=== PATIENT | male | born 1950 | race Caucasian/White ===

== ENCOUNTER 2020-02-18 19:43 | Inpatient (IN) ==
[2020-02-18] MEDS ORDERED: ONDANSETRON 4 MG/2 ML VIAL IV ONE (20:05)
[2020-02-18] MEDS: HYDROmorphone 0.5 MG/0.5 ML SYRINGE IV PRN ×3 (20:18→22:20)
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
[2020-02-18 21:21] LABS: Basophils # (Auto) 0.06 K/mcL (0.00-0.20); Basophils % (Auto) 0.4 % (0.0-2.0); Eosinophils # (Auto) 0.09 K/mcL (0.00-0.70); Eosinophils % (Auto) 0.6 % (0.0-7.0); Hematocrit 45.6 % (41.0-55.0); Hemoglobin 15.4 g/dL (13.5-16.5); Lymphocytes % (Auto) 10.5 % (15.0-49.0); Mean Cell Volume 95.4 fL (80.0-100.0); Mean Corpuscular HGB Conc 33.8 g/dL (31.0-36.0); Mean Platelet Volume 9.6 fL (7.4-10.4); Monocytes # (Auto) 1.21 K/mcL (0.10-0.90); Monocytes % (Auto) 8.4 % (1.0-12.0); Neutrophils % (Auto) 80.1 % (38.0-78.0); Platelet Count 465 K/mcL (140-440); RBC 4.78 M/mcL (4.50-5.90); Red Cell Distribution Width 12.7 % (11.5-14.5); WBC 14.4 K/mcL (4.5-11.0)
[2020-02-18 21:29] LABS: Appearance,Urine CLEAR (Clear); Bilirubin,Urine Negative (Negative); Color,Urine STRAW; Culture Indicated,Urine No; Glucose,Urine (UA) Negative (Negative); Ketones,Urine Negative (Negative); Leukocyte Esterase,Urine Negative /ug (Negative); Nitrate,Urine Negative (Negative); Protein,Urine Negative (Negative); Specific Gravity,Urine 1.003 (1.000-1.035); Urine RBC 1 /hpf (0-1); Urine Squamous Epithelial Cell 0 /hpf (0-4); Urine WBC 0 /hpf (0-4); Urobilinogen,Urine Negative
[2020-02-18 21:41] LABS: ALT/SGPT 17 U/L (<40); AST/SGOT 25 U/L (<40); Albumin/Globulin Ratio 1.6 (1.0-2.3); Alkaline Phosphatase 79 U/L (39-117); Bilirubin,Total 0.3 mg/dL (0.1-1.0); Blood Urea Nitrogen 7 mg/dL (8-23); Calcium 9.2 mg/dL (8.6-10.4); Carbon Dioxide 24 mmol/L (22-30); Chloride 98 mmol/L (96-108); Globulin 2.5 gm/dL (2.2-3.7); Glomerular Filtration Rate 92; Glucose 164 mg/dL (70-105)
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
[2020-02-18] MEDS ORDERED: POTASSIUM CHLORIDE 20 MEQ TABLET PO PRN ×2 (22:53)
[2020-02-18] MEDS ORDERED: DEXTROSE 50% 50 ML VIAL IV PRN (22:53)
[2020-02-18] MEDS ORDERED: POTASSIUM CHLORIDE 40 MEQ in DEXTROSE 5% IN WATER 500 ML IV PRN (22:53)
[2020-02-18] MEDS ORDERED: POLYETHYLENE GLYCOL 3350 17 GM PACKET PO PRN (22:53)
[2020-02-18] MEDS ORDERED: MAGNESIUM SULFATE 2 GM/50 ML BAG IV PRN (22:53)
[2020-02-18] MEDS ORDERED: HYDROcodone/APAP 5/325MG TABLET PO PRN (22:53)
[2020-02-18] MEDS ORDERED: ONDANSETRON 4 MG/2 ML VIAL IV PRN (22:53)
[2020-02-18] MEDS ORDERED: SENNOSIDES 1 TABLET PO PRN (22:53)
[2020-02-18] MEDS ORDERED: ACETAMINOPHEN 325 MG TABLET PO PRN (22:53)
[2020-02-18] MEDS ORDERED: LORazepam 2 MG/ML VIAL IV PRN (22:53)
[2020-02-18] MEDS ORDERED: LABETALOL 5 MG/ML ML IV PRN (22:53)
[2020-02-18] MEDS ORDERED: DEXTROSE 31 GM ORAL.SUSP PO PRN (22:53)
[2020-02-18] MEDS ORDERED: IPRATROPIUM/ALBUTEROL 3 ML AMPUL.NEB NEB PRN (22:53)
[2020-02-19] MEDS ORDERED: morphine 4 MG/ML VIAL ONE ×3 (00:13→06:20)
[2020-02-19] MEDS: 0.9 % SODIUM CHLORIDE 1,000 ML IV SCH ×2 (00:13→08:34)
[2020-02-19] MEDS ORDERED: LORazepam 2 MG/ML VIAL ONE (02:40)
[2020-02-19] MEDS: morphine 4 MG/ML VIAL IV PRN ×4 (03:16→16:10)
[2020-02-19] MEDS: 0.9 % SODIUM CHLORIDE 10 ML SYRINGE IV SCH ×3 (04:25→21:06)
[2020-02-19] MEDS: INSULIN LISPRO 1 UNIT/0.01 ML UNIT SQ SCH ×4 (07:15→21:18)
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
--- NOTE | 2020-02-19 07:55 | Internal Med Progress Note ---
SUBJECTIVE Subjective Patient information: Note initiated : 02/19/20 at 7:52 am Service Date, if different from initiated Date: [] Patient: Alvin Lo 69 y/o M admitted on 02/18/20 for Fall. Chief Complaint: [] Interval history: 69-year-old male who is dog out behind him and tripped and but the least. [place] left hip with immediate pain. Loss of consciousness or head injury. Work-up in the ER showed a left hip fracture. Dr. Graves was contacted orthopedics. Hospital consult was requested for comorbidities. Does have chronic sinus tach ycardia. Other vitals unremarkable. 02/18 Pain relatively controlled. No new complaints. Scheduled for surgery this morning. Has 2 glasses of wine a night and has had no history of withdrawal. Review of Systems: denies headache/fever/chills/nausea/vomiting/chest or abdominal pain/cough/dyspnea/diarrhea. Otherwise see above. Constitutional Vitals: Vital Signs Temp Pulse Resp BP Pulse Ox 98.7 F 101 H 18 154/85 96 02/19/20 07:00 02/19/20 07:00 02/19/20 07:00 02/19/20 07:00 02/19/20 03:17 Period Temp Pulse Resp BP Sys/Wick Pulse Ox Last 24 Hr 98.2 F-100.8 F 100-109 12-24 130-168/85-139 94-97 Intake and Output 02/18/20 02/19/20 02/19/20 21:59 05:59 13:59 Intake Total 0 Balance 0 Weight 86.183 kg 84.504 kg Intake & Output: Intake & Output 02/18/20 02/19/20 02/19/20 21:59 05:59 13:59 Intake Total 0 Balance 0 Weight 86.183 kg 84.504 kg Intake: Oral 0 Exam: General: Alert, Awake, No acute Distress Eyes/N/T: EOMI, Head/Neck: neck supple, CV: RRR, No murmurs, normal s1/s2 Pulm: Clear b/l, no wheezing/rhonchi/rales Abd: soft, nontender, +BS x4 Ext: no clubbing/cyanosis/edema. Left leg shortened and rotated Neuro: Alert, no focal deficits, moves all extremities, Skin: warm/dry OBJ DATA Labs CBC & Chem 7: 02/18/20 20:49 02/18/20 20:49 Labs: Abnormal Lab Results 02/18/20 02/18/20 20:49 20:49 WBC 14.4 H Plt Count 465 H Neut % (Auto) 80.1 H Lymph % (Auto) 10.5 L [place] # (Auto) 1.21 H Absolute Neutrophils 11.49 H BUN 7 L Glucose 164 H Meds: Medications Acetaminophen (Tylenol) 650 mg PO Q6HP PRN PRN Reason: PAIN/FEVER > 101 Hydrocodone Bitart/Acetaminophen ([place] 5/325mg) 1 tab PO Q4HP PRN PRN Reason: PAIN LEVEL 3-6 Albuterol/Ipratropium (Duoneb) 3 ml NEB Q4HP PRN PRN Reason: Shortness Of Breath Dextrose (Dextrose 50%) 0 ml IV UD PRN PRN Reason: Hypoglycemia Diagnostic Test (Pha) (Accu-Chek) 1 each FS [facility] Last Admin: 02/19/20 07:13 Dose: 1 each Documented by: Docusate Sodium (Colace) 100 mg PO BID [facility] Last Admin: 02/19/20 07:12 Dose: Not Given Documented by: Glucose (Insta-Glucose) 15 gm PO PRN PRN PRN Reason: Hypoglycemia Potassium Chloride 40 meq/ (Dextrose) 520 mls @ 130 mls/hr IV UD PRN PRN Reason: Potassium < 3 Magnesium Sulfate (Magnesium Sulfate) 2 gm in 50 mls @ 50 mls/hr IV UD PRN PRN Reason: Magnesium </= 1.6 Sodium Chloride (Sodium Chloride 0.9%) 1,000 mls @ 100 mls/hr IV .Q10H [facility] Stop: 02/20/20 04:52 Last Admin: 02/19/20 00:13 Dose: 100 mls/hr Documented by: Insulin Human Lispro (Humalog) 0 unit SQ ACHS [facility]; Protocol Last Admin: 02/19/20 07:15 Dose: Not Given Documented by: Labetalol HCl (Trandate) 0 mg IV Q2HP PRN PRN Reason: Hypertension Lorazepam (Ativan) 0.5 mg IV Q4-6HP PRN PRN Reason: ANXIETY/SEDATION Last Admin: 02/19/20 02:35 Dose: 0.5 mg Documented by: Morphine Sulfate (Morphine) 0 mg IV Q3HP PRN PRN Reason: Pain Last Admin: 02/19/20 06:17 Dose: 4 mg Documented by: Ondansetron HCl (Zofran) 4 mg IV Q4HP PRN PRN Reason: Nausea And Vomiting Polyethylene Glycol (Miralax) 17 gm PO DAILYP PRN PRN Reason: Constipation Potassium Chloride (Kdur) 40 meq PO UD PRN PRN Reason: Potssium is 3-3.5 Potassium Chloride (Kdur) 40 meq PO UD PRN PRN Reason: Potassium < 3 Senna (Senokot) 2 tab PO DAILYP PRN PRN Reason: Constipation Sodium Chloride (Saline Flush) 10 ml IV Q8 [facility] Last Admin: 02/19/20 04:25 Dose: Not Given Documented by: A/P Narrative A/P Narrative: A: *Left hip fracture: *DM: *HTN/HLD: *Anxiety: *chronic sinus tachycardia: P: -Hip per orthopedics, pain control, pt/ot -Continue home lisinopril -Continue home diabetic medications with SSI -ppx: per ortho DNR Time Spent With Patient Time: Total time spent is greater than 50% in coordination of care (as documented) at patient's floor/unit and/or counseling patient: QUALITY Stroke Symptom Onset Unknown: No VTE Deep Vein Thrombosis/Pulmonary Embolism Present on Admission: No
[2020-02-19] MEDS ORDERED: metFORMIN 500 MG TABLET PO SCH (08:00)
--- NOTE | 2020-02-19 08:32 | XRay Report ---
HISTORY: Fell with left hip injury FINDINGS: There is an acute transverse fracture of the left femoral neck. There is varus angulation and superior retraction of the shaft of the femur. The hip joint space is normal in width and alignment is no underlying arthritis. Degenerative disc disease is present at L4-5 and L5-S1. IMPRESSION: Fractured left femoral neck Interpreted and Authenticated by: Rachdi Chavis 02/19/20
--- NOTE | 2020-02-19 08:33 | XRay Report ---
HISTORY: Side chest pain, hip fracture FINDINGS: Lungs are clear. The heart size and pulmonary vasculature are normal. Aorta is mildly tortuous. The mediastinum and vito are otherwise normal. There is arthritis and disc degeneration at several levels in the cervical spine. Calcified plaques are present in the carotid bifurcations bilaterally. IMPRESSION: No acute abnormality Interpreted and Authenticated by: Rachid Chavis 02/19/20
[2020-02-19] MEDS ORDERED: NITROGLYCERIN 0.4 MG TAB.SUBL SL PRN ×2 (08:42→15:02)
[2020-02-19] MEDS ORDERED: ASPIRIN 81 MG TAB.CHEW PO SCH (09:00)
[2020-02-19] MEDS ORDERED: LISINOPRIL 10 MG TABLET PO SCH (09:00)
[2020-02-19] MEDS ORDERED: DOCUSATE SODIUM 100 MG CAPSULE PO SCH (09:00)
[2020-02-19] MEDS ORDERED: ceFAZolin 2 GM in DEXTROSE 5% IN WATER 50 ML IV SCH ×2 (09:15→12:45)
[2020-02-19 09:59] LABS: Basophils # (Auto) 0.07 K/mcL (0.00-0.20); Basophils % (Auto) 0.5 % (0.0-2.0); Eosinophils # (Auto) 0.25 K/mcL (0.00-0.70); Eosinophils % (Auto) 1.9 % (0.0-7.0); Hematocrit 44.4 % (41.0-55.0); Hemoglobin 14.8 g/dL (13.5-16.5); Lymphocytes # (Auto) 1.72 K/mcL (1.50-4.80); Lymphocytes % (Auto) 13.2 % (15.0-49.0); Mean Cell Volume 96.9 fL (80.0-100.0); Mean Corpuscular HGB Conc 33.3 g/dL (31.0-36.0); Mean Platelet Volume 9.8 fL (7.4-10.4); Monocytes # (Auto) 1.47 K/mcL (0.10-0.90); Monocytes % (Auto) 11.3 % (1.0-12.0); Neutrophils % (Auto) 73.1 % (38.0-78.0); Platelet Count 441 K/mcL (140-440); RBC 4.58 M/mcL (4.50-5.90); Red Cell Distribution Width 13.1 % (11.5-14.5)
--- NOTE | 2020-02-19 10:15 | XRay Report ---
HISTORY: Left hip fracture FINDINGS: Single AP view was obtained with traction applied to the leg. There is an acute transverse fracture through left femoral neck. The fracture line is better defined on this study than on the preceding x-ray. The upward retraction of the femur has diminished with retraction. There is still a varus angulation. Soft tissue swelling is present lateral to the greater trochanter. This may be a hematoma. IMPRESSION: Fractured left femoral neck Interpreted and Authenticated by: Rachid Chavis 02/19/20
[2020-02-19 10:20] LABS: ALT/SGPT 15 U/L (<40); AST/SGOT 24 U/L (<40); Albumin 3.6 gm/dL (3.2-5.2); Albumin/Globulin Ratio 1.4 (1.0-2.3); Alkaline Phosphatase 84 U/L (39-117); Bilirubin,Direct < 0.2 mg/dL (<0.3); Bilirubin,Total 0.8 mg/dL (0.1-1.0); Blood Urea Nitrogen 9 mg/dL (8-23); Calcium 8.9 mg/dL (8.6-10.4); Carbon Dioxide 28 mmol/L (22-30); Chloride 101 mmol/L (96-108); Globulin 2.5 gm/dL (2.2-3.7); Glomerular Filtration Rate 92; Glucose 125 mg/dL (70-105); Lactate Dehydrogenase 228 U/L (135-225); Phosphorous 3.5 mg/dL (2.5-4.5); Triglycerides 174 mg/dL (<150); Uric Acid 6.2 mg/dL (2.5-8.0)
[2020-02-19 10:36] LABS: Prothrombin Time 13.2 sec (11.9-14.5)
[2020-02-19] MEDS ORDERED: TRANEXAMIC ACID 1,000 MG/10 ML VIAL IV ONE ×2 (10:55→11:05)
[2020-02-19] MEDS ORDERED: ONDANSETRON 4 MG/2 ML VIAL ONE (11:05)
[2020-02-19] MEDS ORDERED: KETAMINE 100 MG/ML ML ONE (11:05)
[2020-02-19] MEDS ORDERED: PROPOFOL 200 MG/20 ML VIAL IV ONE (11:05)
[2020-02-19] MEDS ORDERED: DEXAMETHASONE 10 MG/ML VIAL ONE (11:05)
[2020-02-19] MEDS ORDERED: LIDOCAINE HCL/PF 100 MG/5 ML SYRINGE IV ONE (11:05)
[2020-02-19] MEDS ORDERED: FLUMAZENIL 0.1 MG/ML ML IV PRN (11:56)
[2020-02-19] MEDS ORDERED: diphenhydrAMINE 50 MG/ML VIAL IV PRN (11:56)
[2020-02-19] MEDS ORDERED: ONDANSETRON 4 MG/2 ML VIAL IV PRN ×2 (11:56→15:02)
[2020-02-19] MEDS ORDERED: LACTATED RINGERS 250 ML IV PRN (11:56)
[2020-02-19] MEDS ORDERED: NALOXONE HCL 0.4 MG/ML VIAL IV PRN (11:56)
[2020-02-19] MEDS ORDERED: ACETAMINOPHEN 1,000 MG/100 ML BOTTLE IV ONE (11:56)
[2020-02-19] MEDS ORDERED: PROMETHAZINE 25 MG/ML VIAL IV PRN (11:56)
[2020-02-19] MEDS ORDERED: IPRATROPIUM/ALBUTEROL 3 ML AMPUL.NEB NEB PRN ×2 (11:56→15:02)
[2020-02-19] MEDS ORDERED: LACTATED RINGERS 1,000 ML IV SCH ×2 (12:00→12:45)
[2020-02-19] MEDS ORDERED: HYDROcodone/APAP 5/325MG TABLET PO PRN (12:35)
[2020-02-19] MEDS ORDERED: BENZOCAINE/MENTHOL 1 LOZENGE PO PRN ×2 (12:35→15:02)
--- NOTE | 2020-02-19 12:35 | Brief Operative Note ---
Brief Operative Note Date of procedure: 02/19/20 Pre-op diagnosis: left displaced femeral neck fracture Post-op diagnosis: same Procedure: left ranjeet hip arthroplasty Grafts/Implants: Yes Anesthesia: GETA Findings: displaced fracture Complications: none Surgeon: Corey Graves Software Test Developer: Azael Davidson Estimated blood loss (cc): 150 Tourniquet Time (Minutes): 0 Specimens Removed/Pathology: none sent Condition: stable Disposition: PACU
[2020-02-19] MEDS ORDERED: METHOCARBAMOL 1,000 MG/10 ML VIAL IV PRN (12:40)
[2020-02-19] MEDS: fentaNYL 100 MCG/2 ML VIAL IV PRN ×7 (13:07→14:11)
[2020-02-19] MEDS ORDERED: MEPERIDINE 25 MG/ML SYRINGE IV ONE (13:08)
--- NOTE | 2020-02-19 13:15 | Operative Note ---
DATE OF OPERATION: 02/19/2020 POSTOPERATIVE DIAGNOSIS: Left displaced femoral neck fracture. POSTOPERATIVE DIAGNOSIS: Left displaced femoral neck fracture. PROCEDURE PERFORMED: Left hip hemiarthroplasty, noncemented. SURGEON: Corey Graves M.D. CLINIC MANAGER: Azael Davidson PA-C. The PA's assistance was required for the safe and efficient completion of the entire case. This providers expertise and technical skill were required throughout the case. The PA assisted with preoperative coordination, intraoperative retraction, wound closure, dressing and splint application, as well as postoperative documentation and care coordination. ANESTHESIA: General. INTRAVENOUS FLUIDS: 1100 mL of lactated Ringer's. ESTIMATED BLOOD LOSS: 150 mL. TOURNIQUET TIME: Not applicable. ANTIBIOTICS: 2 grams Ancef. IMPLANTS: Actis size 6 noncemented stem with a regular offset size 51 head ball with a zero insert. PATHOLOGY/LAB: None. INTRAOPERATIVE COMPLICATIONS: None apparent. INDICATION FOR PROCEDURE: The patient is a 69-year-old male who fell yesterday after he fell over his dog resulting in fracture of his hip. He was subsequently brought to the emergency department for further evaluation and treatment and found to have a displaced fracture of the femoral neck. Orthopedics was consulted for further evaluation and treatment. I discussed this with him, as well as the treatment options to include surgical intervention with a hemiarthroplasty. I discussed the procedure with him, as well as the risks and benefits of the surgery and postoperative expectations and the recovery process. Given his options, he does want to proceed with surgery. DESCRIPTION OF PROCEDURE: The patient was met in the preop holding area and site was verified and marked with the patient's input. He was then taken back to the operating room where he underwent successful anesthesia via LMA. He was placed in lateral decubitus position with the left side up. He had a cutout for his arm negating the need for an axillary roll. The left lower extremity was wiped down with chlorhexidine wipes and then prepped and draped in the usual sterile fashion with chlorhexidine. Surgical timeout was performed to verify patient identity, correct procedure being performed, and correct extremity being operated on. Everybody was in agreement. I created an approximately 12 cm incision over the posterior middle third of the greater trochanter distally and proximally. Skin was sharply incised with a large coagulated hematoma that was evacuated down to the tensor fascia and IT band more distally. This was incised as well and a bursectomy was performed. A self-retaining Charnley retractor was placed to expose the lateral aspect of the proximal femur. With internal rotation, the posterior aspect of the femoral neck was identified and elevated the external rotators off and tagged these. The fracture was easily encountered. I created a capsulotomy in line with the femoral neck, placing tag sutures in each of the limbs of the capsulotomy as well. The fracture went down approximately 13 mm from the lesser trochanter. Thus, I elected to cut the neck cut from this laterally into the crux of the greater trochanter. This was completed with an oscillating saw with placing a Christiano in the anterior aspect of the neck. Then, a corkscrew device was utilized to remove the head. Ligamentum flavum was excised as well. The labrum was still intact and minimal arthritis of the acetabulum itself. At this point, we copiously irrigated the wound again, ensuring all bony fragments were removed. Pulse lavage was then used with IrriSept as well. The femoral neck was exposed using the femoral neck elevator. Utilizing a box puller lateralizing canal finder and subsequently broached up to size 7 with Actis stem with a good fit. We placed a standard head with a 51 mm head ball and reduced this with good overall catholic of his length. It was stable in the side lying position at 30/30 along with hip flexion 90 degrees and internal rotation of approximately 50-60 degrees without dislocation. I felt this was a stable construct and still able to get full extension. These trials were removed. Again, IrriSept was allowed to soak the wound again and pulse lavaged this out, ensuring all bony fragments were removed. We placed our final implants with the same construct and reduced the joint again with the same results as noted above. At this point, we closed the capsulotomy with a #2 FiberWire for a total of four sutures with a good repair. The IT band and tensor was closed with a #1 Vicryl and Stratafix more distally and over the proximal muscle portion with a 2-0 Vicryl. Subcutaneous tissue was closed with 3-0 Vicryl and skin was closed with keely. The skin was then cleaned and dried and placed a silver dressing. The patient was awoken from anesthesia and transferred to PACU in stable condition. POSTOPERATIVE PLAN: The patient will be admitted back to the floor for postoperative recovery with posterior hip precautions for a total of 6 weeks. DLW:cele Job ID: [id number] Doc ID: [id number] Corey Graves MD [facility]
[2020-02-19] MEDS ORDERED: HYDROmorphone 0.5 MG/0.5 ML SYRINGE IV PRN (13:16)
[2020-02-19] MEDS ORDERED: MEPERIDINE 50 MG/ML INJECTION IM PRN (13:16)
[2020-02-19] MEDS ORDERED: MEPERIDINE 25 MG/ML SYRINGE IV PRN (13:16)
[2020-02-19] MEDS ORDERED: HYDROmorphone 0.5 MG/0.5 ML SYRINGE ONE (13:24)
--- NOTE | 2020-02-19 14:32 | XRay Report ---
HISTORY: Fractured left hip and postop hemiarthroplasty FINDINGS: The left femoral head and neck have been resected and replaced with a metal implant. The implant is well centered within the acetabulum. There is no fracture or abnormal soft tissue calcification. IMPRESSION: Well-positioned left hip prosthesis Interpreted and Authenticated by: Rachid Chavis 02/19/20
[2020-02-19] MEDS ORDERED: 0.9 % SODIUM CHLORIDE 1,000 ML IV SCH (15:02)
[2020-02-19] MEDS ORDERED: LABETALOL 5 MG/ML ML IV PRN (15:02)
[2020-02-19] MEDS ORDERED: POTASSIUM CHLORIDE 40 MEQ in DEXTROSE 5% IN WATER 500 ML IV PRN (15:02)
[2020-02-19] MEDS ORDERED: DEXTROSE 31 GM ORAL.SUSP PO PRN (15:02)
[2020-02-19] MEDS ORDERED: POTASSIUM CHLORIDE 20 MEQ TABLET PO PRN ×2 (15:02)
[2020-02-19] MEDS ORDERED: SENNOSIDES 1 TABLET PO PRN (15:02)
[2020-02-19] MEDS ORDERED: POLYETHYLENE GLYCOL 3350 17 GM PACKET PO PRN (15:02)
[2020-02-19] MEDS ORDERED: DEXTROSE 50% 50 ML VIAL IV PRN (15:02)
[2020-02-19] MEDS ORDERED: LORazepam 2 MG/ML VIAL IV PRN (15:02)
[2020-02-19] MEDS ORDERED: MAGNESIUM SULFATE 2 GM/50 ML BAG IV PRN (15:02)
[2020-02-19] MEDS: ceFAZolin 1 GM VIAL IV SCH ×2 (16:11→19:19)
[2020-02-19] MEDS: LACTATED RINGERS 1,000 ML IV SCH (16:12)
[2020-02-19] MEDS: metFORMIN 500 MG TABLET PO SCH (16:58)
[2020-02-19] MEDS: METHOCARBAMOL 1,000 MG/10 ML VIAL IV PRN (19:19)
[2020-02-19] MEDS ORDERED: AMITRIPTYLINE 25 MG TABLET PO SCH (21:00)
[2020-02-19] MEDS: DOCUSATE SODIUM 100 MG CAPSULE PO SCH (21:05)
[2020-02-19] MEDS: AMITRIPTYLINE 25 MG TABLET PO SCH (21:06)
[2020-02-19] MEDS: HYDROcodone/APAP 5/325MG TABLET PO PRN (21:18)
[2020-02-20] MEDS: HYDROcodone/APAP 5/325MG TABLET PO PRN ×5 (04:01→20:48)
[2020-02-20] MEDS: LACTATED RINGERS 1,000 ML IV SCH ×2 (04:02→19:50)
[2020-02-20] MEDS: 0.9 % SODIUM CHLORIDE 10 ML SYRINGE IV SCH ×3 (04:02→21:14)
--- NOTE | 2020-02-20 06:59 | Orthopedic Progress Note ---
SUBJECTIVE Subjective Patient information: Note initiated : 02/20/20 at 6:53 am Service Date, if different from initiated Date: [] Patient: Alvin Lo 69 y/o M admitted on 02/18/20 for Fall. Chief Complaint: [no new complaints overnight. Pain is controlled. Ambulated 100ft in the hallway last night. Denies chest pain/shortness of breath.] Constitutional Vitals: Vital Signs Temp Pulse Resp BP Pulse Ox 98.2 F 100 H 20 140/84 96 02/20/20 03:36 02/20/20 03:36 02/20/20 03:36 02/20/20 03:36 02/20/20 03:36 Period Temp Pulse Resp BP Sys/Wick Pulse Ox Last 24 Hr 97.0 F-98.7 F 79-108 12-27 130-163/84-118 84-100 Intake and Output 02/19/20 02/20/20 02/20/20 21:59 05:59 13:59 Intake Total 740 150 Output Total 525 100 250 Balance 215 50 -250 Weight 186 lb 12.8 oz Intake & Output: Intake & Output 02/19/20 02/20/20 02/20/20 21:59 05:59 13:59 Intake Total 740 150 Output Total 525 100 250 Balance 215 50 -250 Weight 186 lb 12.8 oz Intake: Oral 740 150 Output: Void Amount 525 100 250 Other: Meal Dinner Percent of Meal Consumed 100% Feeding Ability Assist with Tray Set Up Urine Appearance Clear Clear Urine Color Bright Yellow Bright Yellow Urine Odor Normal Additional findings Additional findings: General: awake, oriented, non acute distress Left hip: dressing in place- clean and dry without strikethrough. Abduction pillow in place. Foot perfused, baseline neuropathy to mid/upper calf level. OBJ DATA Labs CBC & Chem 7: 02/19/20 06:19 02/19/20 06:19 Labs: Abnormal Lab Results 02/19/20 02/19/20 02/18/20 06:19 06:19 20:49 WBC 13.0 H Plt Count 441 H Neut % (Auto) Lymph % (Auto) 13.2 L [place] # (Auto) 1.47 H Absolute Neutrophils 9.52 H BUN 7 L Glucose 125 H 164 H GGT 70 H Lactate Dehydrogenase 228 H Triglycerides 174 H 02/18/20 20:49 WBC 14.4 H Plt Count 465 H Neut % (Auto) 80.1 H Lymph % (Auto) 10.5 L [place] # (Auto) 1.21 H Absolute Neutrophils 11.49 H BUN Glucose GGT Lactate Dehydrogenase Triglycerides Meds: Medications Hydrocodone Bitart/Acetaminophen ([place] 5/325mg) 0 tab PO Q4HP PRN; Protocol PRN Reason: Per Pain Protocol Last Admin: 02/20/20 04:01 Dose: 1 tab Documented by: Albuterol/Ipratropium (Duoneb) 3 ml NEB Q4HP PRN PRN Reason: Shortness Of Breath Amitriptyline HCl (Elavil) 25 mg PO HS [facility] Last Admin: 02/19/20 21:06 Dose: 25 mg Documented by: Apixaban (Eliquis) 2.5 mg PO BID [facility] Dextrose (Dextrose 50%) 0 ml IV UD PRN PRN Reason: Hypoglycemia Diagnostic Test (Pha) (Accu-Chek) 1 each FS [facility] Last Admin: 02/19/20 21:07 Dose: 1 each Documented by: Docusate Sodium (Colace) 100 mg PO BID [facility] Last Admin: 02/19/20 21:05 Dose: 100 mg Documented by: Glucose (Insta-Glucose) 15 gm PO PRN PRN PRN Reason: Hypoglycemia Hydromorphone HCl (Dilaudid) 0.5 mg IV Q15MIN PRN; Protocol PRN Reason: Per Pain Protocol Lactated Ringer's (Lactated Ringers) 1,000 mls @ 75 mls/hr IV .[id number] [facility] Last Admin: 02/20/20 04:02 Dose: Not Given Documented by: Magnesium Sulfate (Magnesium Sulfate) 2 gm in 50 mls @ 50 mls/hr IV UD PRN PRN Reason: Magnesium </= 1.6 Potassium Chloride 40 meq/ (Dextrose) 520 mls @ 130 mls/hr IV UD PRN PRN Reason: Potassium < 3 Insulin Human Lispro (Humalog) 0 unit SQ [facility]; Protocol Last Admin: 02/19/20 21:18 Dose: 6 units Documented by: Labetalol HCl (Trandate) 0 mg IV Q2HP PRN PRN Reason: Hypertension Lisinopril (Zestril) 10 mg PO QDAY [facility] Lorazepam (Ativan) 0.5 mg IV Q4-6HP PRN PRN Reason: ANXIETY/SEDATION Metformin HCl (Glucophage) 1,000 mg PO BIDCC [facility] Last Admin: 02/19/20 16:58 Dose: 1,000 mg Documented by: Methocarbamol (Robaxin) 750 mg IV Q6HP PRN PRN Reason: Muscle Spasm Last Admin: 02/19/20 19:19 Dose: 750 mg Documented by: Morphine Sulfate (Morphine) 0 mg IV Q3HP PRN PRN Reason: Pain Last Admin: 02/19/20 16:10 Dose: 6 mg Documented by: Nitroglycerin (Nitrostat) 0.4 mg SL Q5MIN PRN PRN Reason: Chest Pain Ondansetron HCl (Zofran) 4 mg IV Q4HP PRN PRN Reason: Nausea And Vomiting Polyethylene Glycol (Miralax) 17 gm PO DAILYP PRN PRN Reason: Constipation Potassium Chloride (Kdur) 40 meq PO UD PRN PRN Reason: Potssium is 3-3.5 Potassium Chloride (Kdur) 40 meq PO UD PRN PRN Reason: Potassium < 3 Senna (Senokot) 2 tab PO DAILYP PRN PRN Reason: Constipation Sodium Chloride (Saline Flush) 10 ml IV Q8 [facility] Last Admin: 02/20/20 04:02 Dose: 10 ml Documented by: Throat Lozenges (Cepacol) 1 lozenge PO PRN PRN PRN Reason: Sore Throat A/P Assessment and plan (1) Closed fracture of left hip: Status: Acute Comment: POD 1 s/p left hip ranjeet arthroplasty for displaced femoral neck fracture - Weight bearing as tolerated, posterior hip precautions x6 weeks - PT/OT -----leave dressing in place until follow up with orthopedics - Oral pain medications- controlled - Diabetic diet - Prophy: IS, scds, mobilization, eliquis starting today - Dispo: pt wishes to go home and pretty set on not going to a rehab place. Lives alone but has all DME's and set up for a disable person in his house. Will see how he does with therapy today and can decide. Potentially, have home health for 1-2 weeks if he does go home. Otherwise, will need f/u with ortho in 10-13 days from day of surgery for post operative wound check. Qualifiers: Encounter type: initial encounter Qualified Code(s): S72.002A - Fractu re of unspecified part of neck of left femur, initial encounter for closed fracture Time Spent With Patient Time: Total time spent is greater than 50% in coordination of care (as documented) at patient's floor/unit and/or counseling patient:
[2020-02-20 07:03] LABS: Basophils # (Auto) 0.02 K/mcL (0.00-0.20); Basophils % (Auto) 0.1 % (0.0-2.0); Eosinophils # (Auto) 0 K/mcL (0.00-0.70); Eosinophils % (Auto) 0 % (0.0-7.0); Hemoglobin 13.1 g/dL (13.5-16.5); Lymphocytes # (Auto) 1.06 K/mcL (1.50-4.80); Lymphocytes % (Auto) 7.1 % (15.0-49.0); Mean Cell Volume 98.5 fL (80.0-100.0); Mean Corpuscular HGB Conc 32.8 g/dL (31.0-36.0); Mean Platelet Volume 9.8 fL (7.4-10.4); Monocytes # (Auto) 1.77 K/mcL (0.10-0.90); Monocytes % (Auto) 11.9 % (1.0-12.0); Neutrophils % (Auto) 80.9 % (38.0-78.0); Platelet Count 431 K/mcL (140-440); RBC 4.06 M/mcL (4.50-5.90); WBC 14.9 K/mcL (4.5-11.0)
[2020-02-20] MEDS: INSULIN LISPRO 1 UNIT/0.01 ML UNIT SQ SCH ×4 (07:34→21:09)
[2020-02-20] MEDS: metFORMIN 500 MG TABLET PO SCH ×2 (07:38→16:58)
--- NOTE | 2020-02-20 07:51 | Internal Med Progress Note ---
SUBJECTIVE Subjective Patient information: Note initiated : 02/20/20 at 7:49 am Service Date, if different from initiated Date: [] Patient: Alvin Lo 69 y/o M admitted on 02/18/20 for Fall. Chief Complaint: [] Interval history: 69-year-old male who is dog out behind him and tripped and but the least. [place] left hip with immediate pain. Loss of consciousness or head injury. Work-up in the ER showed a left hip fracture. Dr. Graves was contacted orthopedics. Hospital consult was requested for comorbidities. Does have chronic sinus tach ycardia. Other vitals unremarkable. 02/18 Pain relatively controlled. No new complaints. Scheduled for surgery this morning. Has 2 glasses of wine a night and has had no history of withdrawal. 02/19 Feeling better today. No overnight event or new complaints. Status post hemihip arthroplasty yesterday. Review of Systems: denies headache/fever/chills/nausea/vomiting/chest or abdominal pain/co ugh/dyspnea/diarrhea. Otherwise see above. Constitutional Vitals: Vital Signs Temp Pulse Resp BP Pulse Ox 98.2 F 100 H 20 140/84 96 02/20/20 03:36 02/20/20 03:36 02/20/20 03:36 02/20/20 03:36 02/20/20 03:36 Period Temp Pulse Resp BP Sys/Wick Pulse Ox Last 24 Hr 97.0 F-98.4 F 79-108 12-27 130-163/84-118 84-100 Intake and Output 02/19/20 02/20/20 02/20/20 21:59 05:59 13:59 Intake Total 740 150 Output Total 525 100 250 Balance 215 50 -250 Weight 84.731 kg Intake & Output: Intake & Output 02/19/20 02/20/20 02/20/20 21:59 05:59 13:59 Intake Total 740 150 Output Total 525 100 250 Balance 215 50 -250 Weight 84.731 kg Intake: Oral 740 150 Output: Void Amount 525 100 250 Other: Meal Dinner Percent of Meal Consumed 100% Feeding Ability Assist with Tray Set Up Urine Appearance Clear Clear Urine Color Bright Yellow Bright Yellow Urine Odor Normal Exam: General: Alert, Awake, No acute Distress Eyes/N/T: EOMI, Head/Neck: neck supple, CV: RRR, No murmurs, normal s1/s2 Pulm: Clear b/l, no wheezing/rhonchi/rales Abd: soft, nontender, +BS x4 Ext: no clubbing/cyanosis/edema. Neuro: Alert, no focal deficits, moves all extremities, Skin: warm/dry OBJ DATA Labs CBC & Chem 7: 02/20/20 05:31 02/20/20 05:32 Labs: Abnormal Lab Results 02/20/20 02/19/20 02/19/20 05:31 06:19 06:19 WBC 14.9 H 13.0 H RBC 4.06 L Hgb 13.1 L Hct 40.0 L Plt Count 441 H Neut % (Auto) 80.9 H Lymph % (Auto) 7.1 L 13.2 L Lymph # (Auto) 1.06 L [place] # (Auto) 1.77 H 1.47 H Absolute Neutrophils 12.02 H 9.52 H BUN Glucose 125 H GGT 70 H Lactate Dehydrogenase 228 H Triglycerides 174 H 02/18/20 02/18/20 20:49 20:49 WBC 14.4 H RBC Hgb Hct Plt Count 465 H Neut % (Auto) 80.1 H Lymph % (Auto) 10.5 L Lymph # (Auto) [place] # (Auto) 1.21 H Absolute Neutrophils 11.49 H BUN 7 L Glucose 164 H GGT Lactate Dehydrogenase Triglycerides Meds: Medications Hydrocodone Bitart/Acetaminophen ([place] 5/325mg) 0 tab PO Q4HP PRN; Protocol PRN Reason: Per Pain Protocol Last Admin: 02/20/20 07:37 Dose: 2 tab Documented by: Albuterol/Ipratropium (Duoneb) 3 ml NEB Q4HP PRN PRN Reason: Shortness Of Breath Amitriptyline HCl (Elavil) 25 mg PO HS [facility] Last Admin: 02/19/20 21:06 Dose: 25 mg Documented by: Apixaban (Eliquis) 2.5 mg PO BID [facility] Dextrose (Dextrose 50%) 0 ml IV UD PRN PRN Reason: Hypoglycemia Diagnostic Test (Pha) (Accu-Chek) 1 each FS ACHS [facility] Last Admin: 02/20/20 07:32 Dose: 1 each Documented by: Docusate Sodium (Colace) 100 mg PO BID [facility] Last Admin: 02/19/20 21:05 Dose: 100 mg Documented by: Glucose (Insta-Glucose) 15 gm PO PRN PRN PRN Reason: Hypoglycemia Hydromorphone HCl (Dilaudid) 0.5 mg IV Q15MIN PRN; Protocol PRN Reason: Per Pain Protocol Lactated Ringer's (Lactated Ringers) 1,000 mls @ 75 mls/hr IV .[id number] [facility] Last Admin: 02/20/20 04:02 Dose: Not Given Documented by: Magnesium Sulfate (Magnesium Sulfate) 2 gm in 50 mls @ 50 mls/hr IV UD PRN PRN Reason: Magnesium </= 1.6 Potassium Chloride 40 meq/ (Dextrose) 520 mls @ 130 mls/hr IV UD PRN PRN Reason: Potassium < 3 Insulin Human Lispro (Humalog) 0 unit SQ ACHS [facility]; Protocol Last Admin: 02/20/20 07:34 Dose: Not Given Documented by: Labetalol HCl (Trandate) 0 mg IV Q2HP PRN PRN Reason: Hypertension Lisinopril (Zestril) 10 mg PO QDAY [facility] Lorazepam (Ativan) 0.5 mg IV Q4-6HP PRN PRN Reason: ANXIETY/SEDATION Metformin HCl (Glucophage) 1,000 mg PO BIDCC [facility] Last Admin: 02/20/20 07:38 Dose: 1,000 mg Documented by: Methocarbamol (Robaxin) 750 mg IV Q6HP PRN PRN Reason: Muscle Spasm Last Admin: 02/19/20 19:19 Dose: 750 mg Documented by: Morphine Sulfate (Morphine) 0 mg IV Q3HP PRN PRN Reason: Pain Last Admin: 02/19/20 16:10 Dose: 6 mg Documented by: Nitroglycerin (Nitrostat) 0.4 mg SL Q5MIN PRN PRN Reason: Chest Pain Ondansetron HCl (Zofran) 4 mg IV Q4HP PRN PRN Reason: Nausea And Vomiting Polyethylene Glycol (Miralax) 17 gm PO DAILYP PRN PRN Reason: Constipation Potassium Chloride (Kdur) 40 meq PO UD PRN PRN Reason: Potssium is 3-3.5 Potassium Chloride (Kdur) 40 meq PO UD PRN PRN Reason: Potassium < 3 Senna (Senokot) 2 tab PO DAILYP PRN PRN Reason: Constipation Sodium Chloride (Saline Flush) 10 ml IV Q8 [facility] Last Admin: 02/20/20 04:02 Dose: 10 ml Documented by: Throat Lozenges (Cepacol) 1 lozenge PO PRN PRN PRN Reason: Sore Throat A/P Assessment and plan (1) Closed fracture of left hip: Status: Acute Qualifiers: Encounter type: initial encounter Qualified Code(s): S72.002A - Fracture of unspecified part of neck of left femur, initial encounter for closed fracture Narrative A/P Narrative: A: *Left hip fracture: s/p ranjeet-hip (02/18) *DM: *HTN/HLD: *Anxiety: *chronic sinus tachycardia: P: -Hip per orthopedics, pain control, pt/ot -Continue home lisinopril -Continue home diabetic medications with SSI -ppx: per ortho DNR Time Spent With Patient Time: Total time spent is greater than 50% in coordination of care (as documented) at patient's floor/unit and/or counseling patient: QUALITY Stroke Symptom Onset Unknown: No VTE Deep Vein Thrombosis/Pulmonary Embolism Present on Admission: No
[2020-02-20 08:06] LABS: Blood Urea Nitrogen 14 mg/dL (8-23); Calcium 8.7 mg/dL (8.6-10.4); Carbon Dioxide 25 mmol/L (22-30); Chloride 100 mmol/L (96-108); Glomerular Filtration Rate 92; Glucose 122 mg/dL (70-105)
[2020-02-20] MEDS ORDERED: APIXABAN 5 MG TABLET PO SCH (09:00)
[2020-02-20] MEDS: APIXABAN 5 MG TABLET PO SCH ×2 (09:17→21:13)
[2020-02-20] MEDS: LISINOPRIL 10 MG TABLET PO SCH (09:17)
[2020-02-20] MEDS: DOCUSATE SODIUM 100 MG CAPSULE PO SCH ×2 (09:18→20:48)
[2020-02-20 10:11] LABS: Band Neutrophils % 1 % (0-10); Lymphocytes % 8 % (15-49); Monocytes % (Manual) 10 % (1-12); Platelet Estimate NORMAL (Normal); RBC Morphology NORMAL (Normal); Reactive Lymphocytes 1 % (0-2); Segmented Neutrophils % 80 % (38-78)
--- NOTE | 2020-02-20 10:30 | Discharge Summary ---
Discharge Provider Provider Patient information: Note initiated : 02/20/20 at 10:29 am Service Date, if different from initiated Date: [] Patient: Alvin Lo 69 y/o M admitted on 02/18/20 for Fall. Chief Complaint: [] Date of admission: 02/18/20 22:50 Discharge date: 02/20/20 Primary care physician: Anders Newell PA-C Consults: 02/18/20 Consult to Physician [CONS] Stat Comment: Consulting Provider: Ace Coy Reason For Exam: Physician to Consult Consult to Physician [CONS] Stat Comment: Consulting Provider: Corey Graves Reason For Exam: Physician to Consult Discharge Meds Discharge Medications Home Medications aspirin 81 mg tablet,delayed release 81 mg PO BID tab 06/30/17 [History Confirmed 02/19/20 Last Taken Unknown] nitroglycerin 0.4 mg sublingual tablet 0.4 mg SUBLINGUAL Q5MIN PRN #30 tab.subl 09/26/18 [Rx Confirmed 02/19/20 Last Taken Unknown] lisinopril 10 mg tablet 10 mg PO QDAY #90 tab 11/05/19 [Rx Confirmed 02/19/20 Last Taken 02/18/20] amitriptyline 25 mg tablet 25 mg PO .COMPLEX #100 tab 12/17/19 [Rx Confirmed 02/18/20 Last Taken 02/04/20] metformin 1,000 mg tablet 1,000 mg PO BID #180 tab 12/17/19 [Rx Confirmed 02/19/20 Last Taken 02/18/20 09:00] tramadol 50 mg tablet See Rx Instructions .ROUTE .COMPLEX #120 tablet 01/16/20 [Rx Confirmed 02/18/20 Last Taken 02/04/20] apixaban [Eliquis] 2.5 mg PO BID #68 tab 02/20/20 [Rx Last Taken Unknown] docusate sodium 100 mg PO BID #60 cap 02/20/20 [Rx Last Taken Unknown] hydrocodone-acetaminophen [[place]] 1 - 2 tab PO Q4 PRN #60 tab 02/20/20 [Rx Last Taken Unknown] methocarbamol [Robaxin-750] 750 mg PO Q8H #20 tab 02/20/20 [Rx Last Taken Unknown] COURSE Hospital Course Hospital course: Interval history: 69-year-old male who is dog out behind him and tripped and but the least. [place] left hip with immediate pain. Loss of consciousness or head injury. Work-up in the ER showed a left hip fracture. Dr. Graves was contacted orthopedics. Hospital consult was requested for comorbidities. Does have chronic sinus tachycardia. Other vitals unremarkable. 02/18 Pain relatively controlled. No new complaints. Scheduled for surgery this morning. Has 2 glasses of wine a night and has had no history of withdrawal. 02/19 Feeling better today. No overnight event or new complaints. Status post hemihip arthroplasty yesterday. A: *Left hip fracture: s/p ranjeet-hip (02/18) *DM: *HTN/HLD: *Anxiety: *chronic sinus tachycardia: Discharge diagnosis: Left hip fracture Secondary discharge diagnosis: Diabetes hypertension anxiety chronic sinus tach Time Spent with Patient Time attestation: Total time spent providing and/or coordinating discharge services: Time spent: Greater than 30 minutes EXAM Constitutional Vitals: Temp Pulse Resp BP Pulse Ox 98.7 F 100 H 18 131/85 95 02/20/20 08:00 02/20/20 08:00 02/20/20 08:00 02/20/20 08:00 02/20/20 08:00 Discharge Data Data Completed and Pending Labs on day of discharge: Labs from last 24 hours 02/20/20 02/20/20 02/20/20 05:32 05:31 05:31 WBC 14.9 H RBC 4.06 L Hgb 13.1 L Hct 40.0 L MCV 98.5 MCH 32.3 MCHC 32.8 RDW 13.0 Plt Count 431 MPV 9.8 Neut % (Auto) 80.9 H Lymph % (Auto) 7.1 L [place] % (Auto) 11.9 Eos % (Auto) 0 Baso % (Auto) 0.1 Lymph # (Auto) 1.06 L [place] # (Auto) 1.77 H Eos # (Auto) 0 Baso # (Auto) 0.02 Seg Neutrophils % 80 H Band Neutrophils % 1 Lymphocytes % 8 L Monocytes % (Manual) 10 Absolute Neutrophils 12.02 H Reactive Lymphocytes 1 Platelet Estimate Normal RBC Morphology Normal PT INR Sodium 133 Potassium 4.3 Chloride 100 Carbon Dioxide 25 Anion Gap 8.0 BUN 14 Creatinine 0.8 GFR Calculation 92 Glucose 122 H Calcium 8.7 02/19/20 06:19 WBC RBC Hgb Hct MCV MCH MCHC RDW Plt Count MPV Neut % (Auto) Lymph % (Auto) [place] % (Auto) Eos % (Auto) Baso % (Auto) Lymph # (Auto) [place] # (Auto) Eos # (Auto) Baso # (Auto) Seg Neutrophils % Band Neutrophils % Lymphocytes % Monocytes % (Manual) Absolute Neutrophils Reactive Lymphocytes Platelet Estimate RBC Morphology PT 13.2 INR 1.0 Sodium Potassium Chloride Carbon Dioxide Anion Gap BUN Creatinine GFR Calculation Glucose Calcium Discharge Plan Patient/Caregiver Discharge Instructions Activity: increase activity as tolerated Diet: Consistent Carbohydrate Prescriptions: New hydrocodone-acetaminophen [[place]] 5-325 mg tablet 1 - 2 tab PO Q4 PRN (Reason: pain) Qty: 60 RF: 0 Eliquis 2.5 mg tablet 2.5 mg PO BID Qty: 68 RF: 0 methocarbamol [Robaxin-750] 750 mg tablet 750 mg PO Q8H Qty: 20 RF: 0 docusate sodium 100 mg capsule 100 mg PO BID Qty: 60 RF: 0 No Action lisinopril 10 mg tablet 10 mg PO QDAY Qty: 90 RF: 3 amitriptyline 25 mg tablet 25 mg PO .COMPLEX Qty: 100 RF: 5 metformin 1,000 mg tablet 1,000 mg PO BID Qty: 180 RF: 3 tramadol 50 mg tablet See Rx Instructions .ROUTE .COMPLEX Qty: 120 RF: 0 aspirin 81 mg tablet,delayed release (DR/EC) 81 mg PO BID RF: 0 nitroglycerin 0.4 mg tablet, sublingual 0.4 mg SUBLINGUAL Q5MIN PRN (Reason: Chest Pain) Qty: 30 RF: 0 Follow Up Plan Follow up with: Anders Newell PA-C [Primary Care Provider] - Corey Graves MD [Physician] - Patient Disposition: Home Health Service Discharge Orders: Discharge Order (Routine); Ordered 02/20/20 Ordered By: Ace Madrigal [facility] Deep Vein Thrombosis/Pulmonary Embolism Present on Admission: No
[2020-02-20] MEDS: METHOCARBAMOL 1,000 MG/10 ML VIAL IV PRN (16:12)
[2020-02-20] MEDS: AMITRIPTYLINE 25 MG TABLET PO SCH (20:48)
[2020-02-21] MEDS: HYDROcodone/APAP 5/325MG TABLET PO PRN ×3 (01:26→11:03)
[2020-02-21] MEDS: morphine 4 MG/ML VIAL IV PRN (04:38)
[2020-02-21] MEDS: 0.9 % SODIUM CHLORIDE 10 ML SYRINGE IV SCH (04:47)
[2020-02-21] MEDS: INSULIN LISPRO 1 UNIT/0.01 ML UNIT SQ SCH (06:45)
[2020-02-21] MEDS: LACTATED RINGERS 1,000 ML IV SCH (07:38)
--- NOTE | 2020-02-21 08:03 | Orthopedic Progress Note ---
SUBJECTIVE Subjective Patient information: Note initiated : 02/21/20 at 7:39 am Service Date, if different from initiated Date: [] Patient: Alvin Lo 69 y/o M admitted on 02/18/20 for Fall. He is POD#2 s/p left him hemiarthroplasty. Overall no new complaints this AM. States his hip pain is a little worse than yesterday but that it is managed. Denies SOB, CP, N/V, fevers/chills. Chief Complaint: left hip pain. Constitutional Vitals: Vital Signs Temp Pulse Resp BP Pulse Ox 98.0 F 90 16 133/83 95 02/21/20 03:35 02/21/20 03:35 02/21/20 03:35 02/21/20 03:35 02/21/20 03:35 Period Temp Pulse Resp BP Sys/Wick Pulse Ox Last 24 Hr 97.8 F-98.7 F 90-112 16-24 118-146/62-92 95-98 Intake and Output 02/20/20 02/21/20 02/21/20 21:59 05:59 13:59 Intake Total 300 700 240 Output Total 600 250 350 Balance -300 450 -110 Weight 189 lb Intake & Output: Intake & Output 02/20/20 02/21/20 02/21/20 21:59 05:59 13:59 Intake Total 300 700 240 Output Total 600 250 350 Balance -300 450 -110 Weight 189 lb Intake: Oral 300 700 240 Output: Void Amount 600 250 350 Other: Urine Appearance Clear Clear Urine Color Dark Yellow Dark Yellow Extremities Exam Extremities exam: Present normal capillary refill, normal inspection, Foot pink and warm and neurovascular intact; Absent calf tenderness and Varun's sign Additional comments: left hip: silver dressing is intact. There is a small area of shadow drainage mid-proximal incision. The remainder is clean and dry. He is weakly able to perform SLR and has full ROM of bilateral feet/ankles. He does delatorre ve baseline neuropathy but feet are warm and well perfused. OBJ DATA Labs CBC & Chem 7: 02/20/20 05:31 02/20/20 05:32 Labs: Abnormal Lab Results 02/20/20 02/20/20 02/20/20 05:32 05:31 05:31 WBC 14.9 H RBC 4.06 L Hgb 13.1 L Hct 40.0 L Plt Count Neut % (Auto) 80.9 H Lymph % (Auto) 7.1 L Lymph # (Auto) 1.06 L [place] # (Auto) 1.77 H Seg Neutrophils % 80 H Lymphocytes % 8 L Absolute Neutrophils 12.02 H BUN Glucose 122 H GGT Lactate Dehydrogenase Triglycerides 02/19/20 02/19/20 02/18/20 06:19 06:19 20:49 WBC 13.0 H RBC Hgb Hct Plt Count 441 H Neut % (Auto) Lymph % (Auto) 13.2 L Lymph # (Auto) [place] # (Auto) 1.47 H Seg Neutrophils % Lymphocytes % Absolute Neutrophils 9.52 H BUN 7 L Glucose 125 H 164 H GGT 70 H Lactate Dehydrogenase 228 H Triglycerides 174 H 02/18/20 20:49 WBC 14.4 H RBC Hgb Hct Plt Count 465 H Neut % (Auto) 80.1 H Lymph % (Auto) 10.5 L Lymph # (Auto) [place] # (Auto) 1.21 H Seg Neutrophils % Lymphocytes % Absolute Neutrophils 11.49 H BUN Glucose GGT Lactate Dehydrogenase Triglycerides Meds: Medications Hydrocodone Bitart/Acetaminophen ([place] 5/325mg) 0 tab PO Q4HP PRN; Protocol PRN Reason: Per Pain Protocol Last Admin: 02/21/20 06:41 Dose: 2 tab Documented by: Albuterol/Ipratropium (Duoneb) 3 ml NEB Q4HP PRN PRN Reason: Shortness Of Breath Amitriptyline HCl (Elavil) 25 mg PO HS [facility] Last Admin: 02/20/20 20:48 Dose: 25 mg Documented by: Apixaban (Eliquis) 2.5 mg PO BID [facility] Last Admin: 02/20/20 21:13 Dose: 2.5 mg Documented by: Dextrose (Dextrose 50%) 0 ml IV UD PRN PRN Reason: Hypoglycemia Diagnostic Test (Pha) (Accu-Chek) 1 each FS ACHS [facility] Last Admin: 02/21/20 06:42 Dose: 1 each Documented by: Docusate Sodium (Colace) 100 mg PO BID [facility] Last Admin: 02/20/20 20:48 Dose: 100 mg Documented by: Glucose (Insta-Glucose) 15 gm PO PRN PRN PRN Reason: Hypoglycemia Hydromorphone HCl (Dilaudid) 0.5 mg IV Q15MIN PRN; Protocol PRN Reason: Per Pain Protocol Lactated Ringer's (Lactated Ringers) 1,000 mls @ 75 mls/hr IV .[id number] [facility] Last Admin: 02/20/20 19:50 Dose: Not Given Documented by: Magnesium Sulfate (Magnesium Sulfate) 2 gm in 50 mls @ 50 mls/hr IV UD PRN PRN Reason: Magnesium </= 1.6 Potassium Chloride 40 meq/ (Dextrose) 520 mls @ 130 mls/hr IV UD PRN PRN Reason: Potassium < 3 Insulin Human Lispro (Humalog) 0 unit SQ ACHS [facility]; Protocol Last Admin: 02/21/20 06:45 Dose: Not Given Documented by: Labetalol HCl (Trandate) 0 mg IV Q2HP PRN PRN Reason: Hypertension Lisinopril (Zestril) 10 mg PO QDAY [facility] Last Admin: 02/20/20 09:17 Dose: 10 mg Documented by: Lorazepam (Ativan) 0.5 mg IV Q4-6HP PRN PRN Reason: ANXIETY/SEDATION Metformin HCl (Glucophage) 1,000 mg PO BIDCC [facility] Last Admin: 02/20/20 16:58 Dose: 1,000 mg Documented by: Methocarbamol (Robaxin) 750 mg IV Q6HP PRN PRN Reason: Muscle Spasm Last Admin: 02/20/20 16:12 Dose: 750 mg Documented by: Morphine Sulfate (Morphine) 0 mg IV Q3HP PRN PRN Reason: Pain Last Admin: 02/21/20 04:38 Dose: 4 mg Documented by: Nitroglycerin (Nitrostat) 0.4 mg SL Q5MIN PRN PRN Reason: Chest Pain Ondansetron HCl (Zofran) 4 mg IV Q4HP PRN PRN Reason: Nausea And Vomiting Polyethylene Glycol (Miralax) 17 gm PO DAILYP PRN PRN Reason: Constipation Potassium Chloride (Kdur) 40 meq PO UD PRN PRN Reason: Potssium is 3-3.5 Potassium Chloride (Kdur) 40 meq PO UD PRN PRN Reason: Potassium < 3 Senna (Senokot) 2 tab PO DAILYP PRN PRN Reason: Constipation Sodium Chloride (Saline Flush) 10 ml IV Q8 [facility] Last Admin: 11/05/20 04:47 Dose: 10 ml Documented by: Throat Lozenges (Cepacol) 1 lozenge PO PRN PRN PRN Reason: Sore Throat A/P Assessment and plan (1) Closed fracture of left hip: Status: Acute Comment: Pt is a 69 yo male POD# 2 s/p left hip ranjeet arthroplasty for displaced femoral neck fracture. - Weight bearing as tolerated, posterior hip precautions x6 weeks - PT/OT -----leave dressing in place until follow up with orthopedics. - Continue oral pain medications - Continue diabetic diet - Prophy: IS, scds, mobilization, eliquis. - f/u with ortho in 10-13 days from day of surgery for postoperative wound check/staple removal. - Dispo: home with home health. Qualifiers: Encounter type: initial encounter Qualified Code(s): S72.002A - Fracture of unspecified part of neck of left femur, initial encounter for closed fracture Time Spent With Patient Time: Total time spent is greater than 50% in coordination of care (as documented) at patient's floor/unit and/or counseling patient:
[2020-02-21] MEDS: APIXABAN 5 MG TABLET PO SCH (08:29)
[2020-02-21] MEDS: DOCUSATE SODIUM 100 MG CAPSULE PO SCH (08:29)
[2020-02-21] MEDS: LISINOPRIL 10 MG TABLET PO SCH (08:30)
[2020-02-21] MEDS: metFORMIN 500 MG TABLET PO SCH (08:30)
== END 2020-02-21 11:55 | disposition home health service (06) | DRG 522 ==
LOC: ED 19:43 → MEDSUR 22:50
PROVIDERS: ADMIT Internal Medicine; ATTEND Internal Medicine